=== PATIENT | male | born 1975 | race Two or more races ===

== ENCOUNTER 2017-10-19 09:10 | Inpatient (IN) | payer BC ==
[~2017-10-19] VITALS: Ht 165.1 cm; Wt 90.7 kg
[2017-10-19] MEDS ORDERED: SODIUM CHLORIDE 0.9% 500 ML IVB ONE (09:27)
[2017-10-19] MEDS ORDERED: PANTOPRAZOLE 40 MG/10 ML VIAL IV ONE (09:30)
[2017-10-19 09:59] LABS: Basophils # (auto) 0 uL; Basophils % (auto) 0.5 % (0.0-2.0); Eosinophils # (auto) 0.1 uL; Eosinophils % (auto) 0.9 % (0.0-7.0); Hematocrit 30.2 % (41.0-53.0); Hemoglobin 10.3 g/dL (13.5-17.5); Lymphocytes # (auto) 2.2 uL; Lymphocytes % (auto) 25.4 % (10.0-50.0); Mean Corpuscular Hemoglobin 31.3 pg (28.0-32.0); Mean Corpuscular Hgb Conc. 34.1 g/dL (32.0-36.0); Monocytes # (auto) 0.5 uL; Monocytes % (auto) 5.5 % (0.0-12.0); Neutrophils # (auto) 5.8 uL; Neutrophils % (auto) 67.7 % (37.0-80.0); Nucleated Red Blood Cells % 0.1 %; Platelet Count (auto) 274 10^3/uL (140-450); Red Blood Cells 3.28 10^6/uL (4.5-5.90); Red Cell Distribution Width 13.4 % (11.8-14.3); White Blood Cell 8.6 10^3/uL (4.4-10.8)
[2017-10-19 10:11] LABS: INR 1.04 (0.9-1.15); Partial Thromboplastin Time 22.9 sec (23.78-33.04); Prothrombin Time 11.1 sec (9.27-12.13)
[2017-10-19 10:16] LABS: Albumin 3.3 g/dL (3.4-5.0); BUN/Creatinine Ratio 53.2; Bilirubin, Total 0.4 mg/dL (0.2-1.0); Calcium 7.6 mg/dL (8.5-10.1); Magnesium 2.3 mg/dL (1.6-2.6); Potassium 4.1 mmol/L (3.5-5.1)
[2017-10-19] MEDS ORDERED: SODIUM CHLORIDE 0.9% 1,000 ML IV SCH (10:55)
[2017-10-19] MEDS ORDERED: MORPHINE SULFATE 8mg/ml INJ SDV IV PRN ×2 (11:00)
[2017-10-19] MEDS ORDERED: PROMETHAZINE HCL 25 MG/ML 1ML IV PRN (11:00)
[2017-10-19] MEDS ORDERED: LORazepam 0.5 MG TAB PO PRN (11:00)
[2017-10-19] MEDS ORDERED: ACETAMINOPHEN 500 MG TAB PO PRN (11:00)
[2017-10-19] MEDS ORDERED: TEMAZEPAM 15 MG CAP PO PRN (11:00)
[2017-10-19] MEDS ORDERED: SODIUM CHLORIDE 0.9% 1,000 ML IV ONE ×2 (11:00→15:15)
[2017-10-19] MEDS ORDERED: NITROGLYCERIN 0.4 MG SL TAB SL PRN (11:00)
[2017-10-19] MEDS ORDERED: HYDROcodone-ACET 5/325MG TAB PO PRN (11:00)
[2017-10-19 11:27] LABS: CRP High Sensitivity 0.54 mg/dL (< 0.3)
[2017-10-19 11:50] LABS: Hematocrit 28.4 % (41.0-53.0); Hemoglobin 9.6 g/dL (13.5-17.5)
[2017-10-19] MEDS: SODIUM CHLORIDE 0.9% 1,000 ML IV SCH ×2 (12:37→20:01)
[2017-10-19 17:45] VITALS: BP 101/64
[2017-10-19 19:26] LABS: Hematocrit 24.9 % (41.0-53.0); Hemoglobin 8.7 g/dL (13.5-17.5)
[2017-10-19] MEDS: PANTOPRAZOLE 40 MG TAB PO SCH (22:09)
[2017-10-19 22:31] LABS: Urine Bacteria NONE SEEN /hpf (None Seen); Urine Blood Negative /uL (Negative); Urine Mucus FEW (None Seen); Urine Specific Gravity 1.009 (1.001-1.035); Urine WBC <1 /hpf (0 - 3)
[2017-10-19 22:44] LABS: Alcohol, Urine < 3.0 mg/dL (0-5); Amphetamine Screen, Urine NEGATIVE (NEGATIVE); Barbiturate Scree,Urine NEGATIVE (NEGATIVE); Benzodiazephine Screen, Urine NEGATIVE (NEGATIVE); Cannabinoid Screen, Urine NEGATIVE (NEGATIVE); Cocaine Screen, Urine NEGATIVE (NEGATIVE); Opiate Scree,Urine NEGATIVE (NEGATIVE); Phencyclidine Screen, Urine NEGATIVE (NEGATIVE)
[2017-10-20 01:07] LABS: Hemoglobin 8.8 g/dL (13.5-17.5)
[2017-10-20] MEDS: SODIUM CHLORIDE 0.9% 1,000 ML IV SCH ×2 (04:00→12:00)
[2017-10-20 06:02] LABS: Hematocrit 25.4 % (41.0-53.0)
[2017-10-20 07:07] LABS: Basophils # (auto) 0 uL; Red Blood Cells 2.63 10^6/uL (4.5-5.90)
[2017-10-20 07:09] LABS: Basophils % (auto) 0.4 % (0.0-2.0); Eosinophils # (auto) 0.1 uL; Eosinophils % (auto) 1.1 % (0.0-7.0); Hematocrit 23.9 % (41.0-53.0); Hemoglobin 8.5 g/dL (13.5-17.5); Lymphocytes % (auto) 40.3 % (10.0-50.0); Mean Corpuscular Hemoglobin 32.3 pg (28.0-32.0); Mean Corpuscular Hgb Conc. 35.6 g/dL (32.0-36.0); Mean Corpuscular Volume 90.7 fL (80.0-100.0); Monocytes # (auto) 0.3 uL; Monocytes % (auto) 6.8 % (0.0-12.0); Neutrophils # (auto) 2.6 uL; Neutrophils % (auto) 51.4 % (37.0-80.0); Nucleated Red Blood Cells % 0.1 %; Platelet Count (auto) 236 10^3/uL (140-450); Red Cell Distribution Width 13.4 % (11.8-14.3); White Blood Cell 5.1 10^3/uL (4.4-10.8)
[2017-10-20 07:29] LABS: BUN/Creatinine Ratio 16.5; Calcium 7.7 mg/dL (8.5-10.1); Potassium 4.3 mmol/L (3.5-5.1)
[2017-10-20 08:13] LABS: Bilirubin, Total 0.4 mg/dL (0.2-1.0); Total Protein 5.4 g/dL (6.4-8.2)
[2017-10-20] MEDS: PANTOPRAZOLE 40 MG TAB PO SCH (10:28)
[2017-10-20 11:49] VITALS: BP 120/81
[2017-10-20] MEDS ORDERED: PANTOPRAZOLE 40 MG/10 ML VIAL IV ONE (16:00)
[2017-10-21] MEDS ORDERED: PANTOPRAZOLE 40 MG/10 ML VIAL IV SCH (04:00)
== END 2017-10-20 17:00 | disposition left against medical advice (07) | DRG 378 ==
LOC: ER 09:10 → TELE 09:11
PROVIDERS: ADMIT Internal Medicine; ATTEND Internal Medicine
DX: K92.1 Melena (principal); D62 Acute posthemorrhagic anemia; Z53.21 Procedure and treatment not carried out due to patient leaving prior to being seen by health care provider; K57.30 Diverticulosis of large intestine without perforation or abscess without bleeding; F41.9 Anxiety disorder, unspecified; G47.00 Insomnia, unspecified; I95.9 Hypotension, unspecified; Z87.828 Personal history of other (healed) physical injury and trauma
CPT/HCPCS: 36415; 71045; 74176; 80053; 80061; 80307; 81001; 82150; 82378; 82962; 83690; 83735; 85014; 85018; 85025; 85045; 85610; 85652; 85730; 86141; 86850; 86900; 86901; 93005; 94761; 96361; 96374; C9113